=== PATIENT | male | born 1960 | race Caucasian/White ===

== ENCOUNTER 2017-11-26 18:12 | Observation (INO) ==
--- NOTE | 2017-11-26 18:39 | ED ---
HPI General Chief complaint: Abdominal Pain Stated complaint: ABD BLOATING / SOB [id number] Time Seen by Provider: 11/26/17 18:20 Source: patient Mode of arrival: ambulatory Limitations: no limitations History of Present Illness HPI narrative: Patient is a 56 year old male who comes in complaining of abdominal bloating and SOB. He says he has noticed bloating in his abdomen for about 6 months, but in the past few days he feels like it has gotten worse. He says in the past 2 weeks he has been feeling increasingly short of breath. He says when he lays down, he gets worse. He says he has been unable to sleep because he cannot find a position in which he is able to breath. He says he had some pain to his lower ribs associated with this. He denies swelling of his legs. He denies pain to his chest. He does reports "a lot of belching." He has not found anything that relieves his symptoms. He says his symptoms are not related to exertion. Severity is mild to moderate. Treatments prior to arrival: none Related Data Home Medications Medication Instructions Recorded Confirmed allopurinol 300 mg PO DAILY 11/26/17 11/26/17 levothyroxine [Synthroid] See Label Instructions .ROUTE 11/26/17 11/26/17 .COMPLEX levothyroxine [Synthroid] See Label Instructions .ROUTE 11/26/17 11/26/17 .COMPLEX Allergies Allergy/AdvReac Type Severity Reaction Status Date / Time No Known Allergies Allergy Unverified 11/26/17 18:16 Review of Systems Except as stated in HPI: all other systems reviewed are negative Constitutional Denies chills and Denies fever(s) ENT Denies dizziness Cardiovascular Denies chest pain and Denies dyspnea on exertion Respiratory Denies cough and Reports dyspnea Gastrointestinal Reports bloating, Denies nausea and Denies vomiting Musculoskeletal Denies myalgias and Denies arthralgias Integumentary/Breasts Denies change in pigmentation and Denies lesions Neurologic Denies focal weakness and Denies numbness PMFSH History History Provided By: Patient Medical History Medical History Dental root implant present (Acute) Gout (Acute) H/O partial thyroidectomy (Acute) Social History Social History Substance History: No History of Abuse Smoking Status: Current every day smoker Tobacco Type: Cigarettes How Often Do You Have a Drink Containing Alcohol: 2 to 4 times a month Recent Travel in [place] within the Last 8 Weeks: No Recent Out of Country Travel within the Last 8 Weeks: No Exam Narrative Exam Narrative: GENERAL: Awake and alert, no acute distress. SKIN: Focused skin assessment warm/dry. No wounds or signs of infection. HEAD: Atraumatic. Normocephalic. EYES: Pupils equal and round. No scleral icterus. Extraocular movements intact. ENT: Mucous membranes pink and moist. NECK: Trachea midline. No JVD. CARDIOVASCULAR: Regular rate and rhythm. No murmur appreciated. RESPIRATORY: No accessory muscle use. Clear to auscultation. Breath sounds equal bilaterally. GASTROINTESTINAL: Abdomen soft, nondistended. Tenderness to palpation of the left lower quadrant. No rebound or guarding. MUSCULOSKELETAL: No obvious deformities. No clubbing. No cyanosis. No edema. NEUROLOGICAL: Awake and alert. No obvious cranial nerve deficits. Motor grossly within normal limits. Normal speech. PSYCHIATRIC: Appropriate mood and affect; insight and judgment normal. Course Hospital Course: IV established, labs sent. CT abd/pelvis ordered. CTA chest ordered. Reevaluation(s) Reevaluation #1: Patient states he went to CAT scan and experienced chest pain. Time: 20:10 Reevaluation #2: Patient still experiencing pain to his lower chest. Informed of his results. Time: 21:40 Initial Documented Vital Signs Temperature 98.8 F 11/26/17 18:14 Pulse Rate 76 1818 18:14 Respiratory Rate 18 11/26/17 18:14 Blood Pressure 137/73 11/26/17 18:14 Pulse Oximetry 99 11/26/17 18:14 Last Documented Vital Signs Temperature 98.8 F 11/26/17 18:16 Pulse Rate 76 18 18:16 Respiratory Rate 18 11/26/17 18:16 Blood Pressure 137/73 11/26/17 18:16 Pulse Oximetry 99 11/26/17 18:16 Medical Decision Making [facility] Narrative Medical decision making narrative: Patient is a 56-year-old male who comes in complaining of lower chest pain and shortness of breath with abdominal bloating. Exam shows no acute wheeze. IV established, labs sent. Labs show no acute abnormalities. CT of the abdomen and pelvis performed shows no acute abnormalities. CTA of the chest shows a thyroid goiter, no other acute abnormalities. Patient informed of these results. He is still experiencing chest pains. Concern is for ACS. He will be placed in chest pain center for further management. Differential Diagnosis Differential Diagnosis: Ascites versus GERD versus ACS versus JESSICA Medical Records Medical records reviewed: Yes I reviewed the patient's medical records. Lab Data Lab results reviewed: Yes I reviewed the patient's lab results. Result diagrams: 11/26/17 19:05 11/26/17 19:05 Lab Results 11/26/17 11/26/17 11/26/17 Range/Units 19:05 19:05 19:05 CBC w Diff Auto diff final WBC 6.9 (4.0-11.0) th/mm3 RBC 4.71 (4.50-5.90) mil/mm3 Hgb 15.6 (13.0-17.0) gm/dL Hct 44.5 (39.0-51.0) % MCV 94.5 (80.0-100.0) fL MCH 33.2 (27.0-34.0) pg MCHC 35.1 (32.0-36.0) % RDW 12.6 (11.6-17.2) % Plt Count 211 (150-450) th/mm3 MPV 7.6 (7.0-11.0) fL Neut % (Auto) 60.0 (16.0-70.0) % Lymph % (Auto) 28.0 (9.0-44.0) % Mcintosh % (Auto) 6.2 (0.0-8.0) % Eos % (Auto) 4.9 H (0.0-4.0) % Baso % (Auto) 0.9 (0.0-2.0) % Neut # (Auto) 4.2 (1.8-7.7) th/mm3 Lymph # (Auto) 1.9 (1.0-4.8) th/mm3 Mcintosh # (Auto) 0.4 (0.0-0.9) th/mm3 Eos # (Auto) 0.3 (0.0-0.4) th/mm3 Baso # (Auto) 0.1 (0.0-0.2) th/mm3 WBC Differential . Differential Comment . PT 9.4 L (9.8-11.6) sec INR 0.9 Ratio APTT 23.1 L (24.3-30.1) sec Sodium 138 (136-145) meq/L Potassium 4.0 (3.5-5.1) meq/L Chloride 107 (98-107) meq/L Carbon Dioxide 22.6 (21.0-32.0) meq/L Anion Gap 8 (5-15) meq/L BUN 16 (7-18) mg/dL Creatinine 1.00 (0.60-1.30) mg/dL Estimated GFR 77 L (>89) mL/min Random Glucose 102 (74-106) mg/dL Calcium 8.5 (8.5-10.1) mg/dL Total Bilirubin 0.3 (0.2-1.0) mg/dL AST 26 (15-37) U/L ALT 40 (12-78) U/L Alkaline Phosphatase 74 (45-117) U/L Troponin I Less than 0.02 L (0.02-0.05) ng/mL B-Natriuretic Peptide (0-100) pg/mL Total Protein 7.3 (6.4-8.2) g/dL Albumin 3.8 (3.4-5.0) g/dL Lipase 175 (73-393) U/L Urine Color (Yellw/Straw) Urine Clarity (Clear) Urine pH (5.0-8.5) Ur Specific [place] (1.002-1.035) Urine Protein (Neg-Trace) mg/dL Urine Glucose (UA) (Negative) mg/dL Urine Ketones (Negative) mg/dL Urine Occult Blood (Negative) Urine Nitrate (Negative) Urine Bilirubin (Negative) Urine Urobilinogen (Less than 2) mg/dL Ur Leukocyte Esterase (Negative) Urine RBC (0-3) /hpf Urine WBC (0-5) /hpf Ur Squamous Epith Cells (0-5) /hpf Micro UA Comment Urine Culture Comments 11/26/17 11/26/17 Range/Units 19:05 20:50 CBC w Diff WBC (4.0-11.0) th/mm3 RBC (4.50-5.90) mil/mm3 Hgb (13.0-17.0) gm/dL Hct (39.0-51.0) % MCV (80.0-100.0) fL MCH (27.0-34.0) pg MCHC (32.0-36.0) % RDW (11.6-17.2) % Plt Count (150-450) th/mm3 MPV (7.0-11.0) fL Neut % (Auto) (16.0-70.0) % Lymph % (Auto) (9.0-44.0) % Mcintosh % (Auto) (0.0-8.0) % Eos % (Auto) (0.0-4.0) % Baso % (Auto) (0.0-2.0) % Neut # (Auto) (1.8-7.7) th/mm3 Lymph # (Auto) (1.0-4.8) th/mm3 Mcintosh # (Auto) (0.0-0.9) th/mm3 Eos # (Auto) (0.0-0.4) th/mm3 Baso # (Auto) (0.0-0.2) th/mm3 WBC Differential Differential Comment PT (9.8-11.6) sec INR Ratio APTT (24.3-30.1) sec Sodium (136-145) meq/L Potassium (3.5-5.1) meq/L Chloride (98-107) meq/L Carbon Dioxide (21.0-32.0) meq/L Anion Gap (5-15) meq/L BUN (7-18) mg/dL Creatinine (0.60-1.30) mg/dL Estimated GFR (>89) mL/min Random Glucose (74-106) mg/dL Calcium (8.5-10.1) mg/dL Total Bilirubin (0.2-1.0) mg/dL AST (15-37) U/L ALT (12-78) U/L Alkaline Phosphatase (45-117) U/L Troponin I (0.02-0.05) ng/mL B-Natriuretic Peptide 6 (0-100) pg/mL Total Protein (6.4-8.2) g/dL Albumin (3.4-5.0) g/dL Lipase (73-393) U/L Urine Color Yellow (Yellw/Straw) Urine Clarity Clear (Clear) Urine pH 6.0 (5.0-8.5) Ur Specific [place] Less/equal 1.005 (1.002-1.035) Urine Protein Negative (Neg-Trace) mg/dL Urine Glucose (UA) Negative (Negative) mg/dL Urine Ketones Negative (Negative) mg/dL Urine Occult Blood Negative (Negative) Urine Nitrate Negative (Negative) Urine Bilirubin Negative (Negative) Urine Urobilinogen 0.2 (Less than 2) mg/dL Ur Leukocyte Esterase Negative (Negative) Urine RBC 0-3 (0-3) /hpf Urine WBC 0-5 (0-5) /hpf Ur Squamous Epith Cells 0-5 (0-5) /hpf Micro UA Comment Culture not ind Urine Culture Comments Culture not ind Imaging Data Radiologist's impression: Abdomen/Pelvis CT 11/26/17 18:28 CONCLUSION: 1. Negative CT abdomen/pelvis with contrast. Chest CTA 11/26/17 18:28 CONCLUSION: 1. The study is negative for pulmonary embolism. 2. Right substernal goiter. ECG Data EKG Prior to Arrival: No Attestation: I personally reviewed and interpreted this ECG as follows: Interpretation: ECG shows normal sinus rhythm at a rate of 69, left anterior fascicular block Discharge Plan Discharge Disposition Patient Disposition: 30 Still Patient Discharge Condition Condition: Stable Discharge Details Diagnosis: Chest pain Physicians Team ED Provider: Coco Mclean Primary Care Provider: Lebron Samuel Rxs /Orders / Referrals /Forms Prescriptions: No Action levothyroxine [Synthroid] 75 mcg Tablet See Label Instructions .ROUTE .COMPLEX RF: 0 levothyroxine [Synthroid] 88 mcg Tablet See Label Instructions .ROUTE .COMPLEX RF: 0 allopurinol 300 mg Tablet 300 mg PO DAILY RF: 0 Discharge Interventions Interventions: Vital Signs Last Done: 11/26/17 18:16 Status ED Status: With Doctor
[2017-11-26 19:19] LABS: Baso # (Auto) 0.1 th/mm3 (0.0-0.2); Baso % (Auto) 0.9 % (0.0-2.0); Eos # (Auto) 0.3 th/mm3 (0.0-0.4); Eos % (Auto) 4.9 % (0.0-4.0); Hematocrit 44.5 % (39.0-51.0); Hemoglobin 15.6 gm/dL (13.0-17.0); Lymph # (Auto) 1.9 th/mm3 (1.0-4.8); Mean Corpuscular HGB Conc 35.1 % (32.0-36.0); Mean Corpuscular Hemoglobin 33.2 pg (27.0-34.0); Mean Corpuscular Volume 94.5 fL (80.0-100.0); Mean Platelet Volume 7.6 fL (7.0-11.0); Mono # (Auto) 0.4 th/mm3 (0.0-0.9); Mono % (Auto) 6.2 % (0.0-8.0); Neut # (Auto) 4.2 th/mm3 (1.8-7.7); Platelet Count 211 th/mm3 (150-450); Red Blood Count 4.71 mil/mm3 (4.50-5.90); Red Cell Distribution Width 12.6 % (11.6-17.2); White Blood Count 6.9 th/mm3 (4.0-11.0)
[2017-11-26 19:26] LABS: Chloride 107 meq/L (98-107); Sodium 138 meq/L (136-145)
[2017-11-26 19:29] LABS: Calcium 8.5 mg/dL (8.5-10.1)
[2017-11-26 19:30] LABS: Albumin 3.8 g/dL (3.4-5.0); Anion Gap 8 meq/L (5-15); Blood Urea Nitrogen 16 mg/dL (7-18); Carbon Dioxide 22.6 meq/L (21.0-32.0); Glucose,Random 102 mg/dL (74-106); Lipase 175 U/L (73-393)
[2017-11-26 19:32] LABS: Activated Partial Thrombo Time 23.1 sec (24.3-30.1); INR 0.9 Ratio; Prothrombin Time 9.4 sec (9.8-11.6)
[2017-11-26 19:33] LABS: Alanine Aminotransferase 40 U/L (12-78); Aspartate Aminotransferase 26 U/L (15-37); Glomerular Filtration Rate 77 mL/min (>89)
[2017-11-26 19:34] LABS: Total Protein 7.3 g/dL (6.4-8.2)
[2017-11-26 19:35] LABS: Alkaline Phosphatase 74 U/L (45-117)
[2017-11-26 20:58] LABS: Bilirubin,Urine Negative (Negative); Clarity,Urine Clear (Clear); Color,Urine Yellow (Yellw/Straw); Glucose,Urine (UA) Negative (Negative); Leukocyte Esterase,Urine Negative (Negative); Nitrite,Urine Negative (Negative); Specific Gravity,Urine Less/Equal 1.005 (1.002-1.035); Urobilinogen,Urine 0.2 mg/dL (Less than 2)
[2017-11-26 21:07] LABS: RBC,Urine 0-3 /hpf (0-3); Squamous Epithelial Cell,Urine 0-5 /hpf (0-5); WBC,Urine 0-5 /hpf (0-5)
--- NOTE | 2017-11-26 21:12 | CT ---
EXAM DATE: 11/26/2017 8:42 PM EDT AGE/SEX: 56 years / Male INDICATIONS: Abdominal pain. Bloating. CLINICAL DATA: This is the patient's initial encounter. Patient reports that signs and symptoms have been present for 3 weeks and indicates a pain score of 7/10. MEDICAL/SURGICAL HISTORY: None. None. ORAL CONTRAST: No oral contrast ingested. RADIATION DOSE: 18.26 CTDI (mGy) COMPARISON: No prior exams available for comparison. TECHNIQUE: Multiple contiguous axial images were obtained through the abdomen and pelvis following b olus infusion of 100 ml Omnipaque 350 (iohexol) nonionic water-soluble contrast as a cumulative dos e for multiple exams. No oral contrast ingested. Using automated exposure control and adjustment of the mA and/or kV according to patient size, radiation dose was kept as low as reasonably achievable t o obtain optimal diagnostic quality images. DICOM format image data is available electronically for review and comparison. FINDINGS: Lower Lungs: The visualized lower lungs are clear. Liver: The liver has a homogeneous density without space-occupying lesion. There is no dilation of th e biliary tree. No calcified gallstones. Spleen: Homogeneous density without enlargement. Pancreas: Unremarkable without mass or calcification. Kidneys: Normal in size and shape. No evidence of mass or hydronephrosis. Adrenal Glands: Unremarkable. Aorta: The aorta and proximal iliac vessels are grossly unremarkable without aneurysmal dilation. Bowel/Mesentery: No dilated loops of small or large bowel. No evidence of free fluid. Abdominal Wall: Intact. Retroperitoneum: No evidence of adenopathy in the retrocrural, para-aortic, or deep pelvic regions. Bladder: Contours are smooth. Reproductive Organs: No abnormal masses or calcifications seen. Inguinal: The inguinal region is unremarkable without evidence of adenopathy. Bony Structures: Unremarkable. CONCLUSION: 1. Negative CT abdomen/pelvis with contrast. Electronically signed by: Mickey Strickland MD 11/26/2017 9:10 PM EDT
--- NOTE | 2017-11-26 21:13 | CT ---
EXAM DATE: 11/26/2017 8:44 PM EDT AGE/SEX: 56 years / Male INDICATIONS: Shortness of breath. Evaluate for embolism. CLINICAL DATA: This is the patient's initial encounter. Patient reports that signs and symptoms have been present for 3 weeks and indicates a pain score of 7/10. MEDICAL/SURGICAL HISTORY: None. None. RADIATION DOSE: 18.59 CTDI (mGy) COMPARISON: No prior exams available for comparison. TECHNIQUE: Volumetric scanning was performed using a multi-row detector CT scanner during bolus infu piper of 100 ml Omnipaque 350 (iohexol) nonionic water-soluble contrast as a cumulative dose for mult iple exams. The data was post processed with a variety of visualization algorithms including full vol ume maximum intensity projection and sliding thin slab reformation. Using automated exposure control and adjustment of the mA and/or kV according to patient size, radiation dose was kept as low as reaso nably achievable to obtain optimal diagnostic quality images. DICOM format image data is available e lectronically for review and comparison. FINDINGS: Pulmonary Arteries: No filling defects are seen in the pulmonary arteries out to the subsegmental ve ssels. The left and right pulmonary arteries are normal in diameter. Lung: No infiltrates seen. Effusion: None. Mediastinum: No evidence of mediastinal or hilar adenopathy. Other: Enlarged right lobe of the thyroid with substernal extension. CONCLUSION: 1. The study is negative for pulmonary embolism. 2. Right substernal goiter. Electronically signed by: Mickey Strickland MD 11/26/2017 9:12 PM EDT
[2017-11-26] MEDS ORDERED: Pantoprazole Sodium 20 MG DR Tablet PO ONE (21:44)
[2017-11-27 01:54] LABS: Creatine Kinase 126 U/L (39-308)
[2017-11-27 08:31] LABS: Creatine Kinase 120 U/L (39-308)
--- NOTE | 2017-11-27 09:27 | P.HP ---
History of Present Illness Primary Care Physician: Lebron Samuel DO Chief Complaint: chest pain, abd bloating History of Present Illness: 56-year-old male with known history of partial thyroidectomy secondary to goiter, gouty arthritis who presented to the hospital because of chest discomfort and abdominal pain. Patient states that her last 6 months he has been having intermittent sensation in his abdomen with epigastric discomfort and bloating mainly after he eats. Over the last couple weeks he has been having difficulty with sleeping because he cannot lay flat because you get really short of breath and dyspneic. Then over the last 2 days he started developing some discomfort in the epigastric and lower rib area which he describes as a pressure of 8/10 on a pain scale. He has never experienced that discomfort before so he came to the emergency department for evaluation. Patient was given aspirin and Protonix emergency department with resolution of his discomfort after approximately 4 hours. Patient is now resting comfortably in bed. He states that it discomfort is coming back slowly. However he has no longer shortness of breath or has any dyspnea. Patient states that he has not had any nausea, vomiting, diaphoresis, radiation of pain to neck, back, shoulder , arm, denies any lightheadedness or dizziness. Patient was evaluated emergency department with x-rays, pulmonary angiograms, a CT of the abdomen and which were all unremarkable. Laboratory studies were unremarkable. Is recommended by the ER physician the patient be observed in chest pain center for further evaluation and management. - Diagnosis (1) Chest pain Review of Systems All other systems reviewed negative except as stated in HPI Cardiovascular: Reports chest pain Respiratory: Reports shortness of breath Gastrointestinal: Reports abdominal pain, Reports belching, Reports bloating PMFSH - History History Provided By: Patient - Medical History Medical History: Medical History (Last Reviewed 11/27/17 @ 09:21 by YONI Bridges) Dental root implant present Gout H/O partial thyroidectomy - Family History Family History: Family History (Last Reviewed 11/27/17 @ 09:21 by YONI Bridges) Grandparent Diabetes Mother Diabetes Father Family history of bladder cancer - Tobacco History Second Hand Smoke Exposure: Yes Tobacco Use In Past 30 Days: Yes Smoking Status: Current every day smoker Tobacco Type: Cigarettes Packs Per Day: 1 - Alcohol History How Often Do You Have a Drink Containing Alcohol: Monthly or less - Substance Use History Substance History: No History of Abuse - Travel History Recent Travel in the [place] Within the Last 8 Weeks: No Recent Travel Out of the Country Within the Last 8 Weeks: No - Immunization History Tetanus Immunization: >5 Years Hx Influenza Vaccine This Season: No Medications and Allergies Active Medications: Active Medications Nitroglycerin (Nitrostat Sl) 0.4 mg SL Q5M PRN PRN Reason: CHEST PAIN Ondansetron HCl (Zofran Inj) 4 mg IV.PUSH Q6H PRN PRN Reason: NAUSEA OR VOMITING Pantoprazole Sodium (Protonix) 40 mg PO BID BRNIA Sodium Chloride (Ns Flush) 2 ml IV.FLUSH PRN PRN PRN Reason: FLUSH AFTER USING IV ACCESS Sodium Chloride (Ns Flush) 2 ml IV.FLUSH BID BRINA Allergies Allergy/AdvReac Type Severity Reaction Status Date / Time No Known Allergies Allergy Unverified 11/26/17 18:16 Home Medications Medication Instructions Recorded Confirmed Type allopurinol 300 mg PO DAILY 11/26/17 11/26/17 History levothyroxine [Synthroid] PO 3XW 11/26/17 History levothyroxine [Synthroid] PO 4XW 11/26/17 History Exam Vital signs: Vital Signs 11/26/17 18:14 11/26/17 18:16 11/26/17 22:09 Temperature 98.8 F 98.8 F Pulse Rate 76 76 68 Respiratory Rate 18 18 17 Blood Pressure 137/73 137/73 149/86 H Pulse Oximetry 99 99 98 11/27/17 00:00 11/27/17 04:00 11/27/17 08:00 Temperature 96.8 F L 96.3 F L 96.9 F L Pulse Rate 63 59 L 66 Respiratory Rate 20 20 16 Blood Pressure 127/73 134/80 133/77 Pulse Oximetry 95 97 97 11/27/17 09:11 Temperature Pulse Rate 59 L Respiratory Rate Blood Pressure Pulse Oximetry Intake & Output 11/26/17 11/27/17 11/27/17 18:59 06:59 18:59 Weight 99.9 kg 99.7 kg Other: # Voids 1 Date of Last Bowel Movement 11/26/17 Narrative: GENERAL: Well-developed, well-nourished, in no acute distress. alert and orientated HEENT: Head is normocephalic without any lesions or masses noted. Facial features are symmetric. Eyes: Pupils equal round reactive to light. Extraocular muscles are intact. Conjunctivae were clear. Oropharyngeal: Pharynx without any erythema edema. Tongue is midline without deviation. Buccal mucosa is moist without any masses or lesions NECK: Supple without any masses. Trachea midline no deviation. No JVD, no bruits are appreciated CARDIAC: Regular rhythm, regular rate. S1/S2 are heard. No murmurs gallops or rubs. LUNGS: Clear to auscultation bilaterally. No wheeze, rhonchi or rales. No use of accessory muscles on inspiration or expiration. ABDOMEN: Soft, nontender. Nondistended. Bowel sounds heard in all 4 quadrants. No organomegaly or masses. Negative rebound, negative guarding EXTREMITIES: No edema, pulses are equal bilaterally. No cyanosis or clubbing NEUROLOGY: Mood and affect appear appropriate. Cranial nerves II through XII grossly intact. Muscle strength 5/5 in upper and lower extremities bilaterally. Deep tendon reflexes are 2+ in upper and lower extremities bilaterally. Results - Labs CBC & Chem 7: 11/26/17 19:05 11/26/17 19:05 Labs: Laboratory Results - last 24 hr 11/26/17 11/26/17 11/26/17 19:05 19:05 19:05 CBC w Diff Auto diff final WBC 6.9 RBC 4.71 Hgb 15.6 Hct 44.5 MCV 94.5 MCH 33.2 MCHC 35.1 RDW 12.6 Plt Count 211 MPV 7.6 Neut % (Auto) 60.0 Lymph % (Auto) 28.0 Luna % (Auto) 6.2 Eos % (Auto) 4.9 H Baso % (Auto) 0.9 Neut # (Auto) 4.2 Lymph # (Auto) 1.9 Luna # (Auto) 0.4 Eos # (Auto) 0.3 Baso # (Auto) 0.1 WBC Differential . Differential Comment . PT 9.4 L INR 0.9 APTT 23.1 L Sodium 138 Potassium 4.0 Chloride 107 Carbon Dioxide 22.6 Anion Gap 8 BUN 16 Creatinine 1.00 Estimated GFR 77 L Random Glucose 102 Calcium 8.5 Total Bilirubin 0.3 AST 26 ALT 40 Alkaline Phosphatase 74 Total Creatine Kinase Troponin I Less than 0.02 L B-Natriuretic Peptide Total Protein 7.3 Albumin 3.8 Lipase 175 Urine Color Urine Clarity Urine pH Ur Specific [place] Urine Protein Urine Glucose (UA) Urine Ketones Urine Occult Blood Urine Nitrate Urine Bilirubin Urine Urobilinogen Ur Leukocyte Esterase Urine RBC Urine WBC Ur Squamous Epith Cells Micro UA Comment Urine Culture Comments 11/26/17 11/26/17 11/27/17 19:05 20:50 01:20 CBC w Diff WBC RBC Hgb Hct MCV MCH MCHC RDW Plt Count MPV Neut % (Auto) Lymph % (Auto) Luna % (Auto) Eos % (Auto) Baso % (Auto) Neut # (Auto) Lymph # (Auto) Luna # (Auto) Eos # (Auto) Baso # (Auto) WBC Differential Differential Comment PT INR APTT Sodium Potassium Chloride Carbon Dioxide Anion Gap BUN Creatinine Estimated GFR Random Glucose Calcium Total Bilirubin AST ALT Alkaline Phosphatase Total Creatine Kinase 126 Troponin I Less than 0.02 L B-Natriuretic Peptide 6 Total Protein Albumin Lipase Urine Color Yellow Urine Clarity Clear Urine pH 6.0 Ur Specific [place] Less/equal 1.005 Urine Protein Negative Urine Glucose (UA) Negative Urine Ketones Negative Urine Occult Blood Negative Urine Nitrate Negative Urine Bilirubin Negative Urine Urobilinogen 0.2 Ur Leukocyte Esterase Negative Urine RBC 0-3 Urine WBC 0-5 Ur Squamous Epith Cells 0-5 Micro UA Comment Culture not ind Urine Culture Comments Culture not ind 11/27/17 07:58 CBC w Diff WBC RBC Hgb Hct MCV MCH MCHC RDW Plt Count MPV Neut % (Auto) Lymph % (Auto) Luna % (Auto) Eos % (Auto) Baso % (Auto) Neut # (Auto) Lymph # (Auto) Luna # (Auto) Eos # (Auto) Baso # (Auto) WBC Differential Differential Comment PT INR APTT Sodium Potassium Chloride Carbon Dioxide Anion Gap BUN Creatinine Estimated GFR Random Glucose Calcium Total Bilirubin AST ALT Alkaline Phosphatase Total Creatine Kinase 120 Troponin I Less than 0.02 L B-Natriuretic Peptide Total Protein Albumin Lipase Urine Color Urine Clarity Urine pH Ur Specific [place] Urine Protein Urine Glucose (UA) Urine Ketones Urine Occult Blood Urine Nitrate Urine Bilirubin Urine Urobilinogen Ur Leukocyte Esterase Urine RBC Urine WBC Ur Squamous Epith Cells Micro UA Comment Urine Culture Comments - Imaging Impressions Abdomen/Pelvis CT 11/26/17 18:28 CONCLUSION: 1. Negative CT abdomen/pelvis with contrast. Chest CTA 11/26/17 18:28 CONCLUSION: 1. The study is negative for pulmonary embolism. 2. Right substernal goiter. Caprini VTE Risk Assessment Caprini VTE Risk Assessment: No/Low Risk (score <= 1) Caprini Risk Assessment Model: Point Value = 1 Point Value = 2 Point Value = 3 Point Value = 5 Age 41-60 Minor surgery BMI > 25 kg/m2 Swollen legs Varicose veins or History of unexplained or recurrent spontaneous Oral contraceptives or hormone replacement Sepsis (< 1 month) Serious lung disease, including pneumonia (< 1 month) Abnormal pulmonary function Acute myocardial infarction Congestive heart failure (< 1 month) History of inflammatory bowel disease Medical patient at bed rest Age 61-74 Arthroscopic surgery Major open surgery (> 45 min) Laparoscopic surgery (> 45 min) Malignancy Confined to bed (> 72 hours) Immobilizing plaster cast Central venous access Age >= 75 History of VTE Family history of VTE Factor V Leiden Prothrombin 60020I Lupus anticoagulant Anticardiolipin antibodies Elevated serum homocysteine Heparin-induced thrombocytopenia Other congenital or acquired thrombophilia Stroke (< 1 month) Elective arthroplasty Hip, pelvis, or leg fracture Acute spinal cord injury (< 1 month) Prophylaxis Regimen: Total Risk Factor Score Risk Level Prophylaxis Regimen 0-1 Low Early ambulation 2 Moderate Order ONE of the following: *Sequential Compression Device (SCD) *Heparin 5000 units SQ BID 3-4 Higher Order ONE of the following medications: *Heparin 5000 units SQ TID *Enoxaparin/Lovenox 40 mg SQ daily (WT < 150 kg, CrCl > 30 mL/min) *Enoxaparin/Lovenox 30 mg SQ daily (WT < 150 kg, CrCl > 10-29 mL/min) *Enoxaparin/Lovenox 30 mg SQ BID (WT < 150 kg, CrCl > 30 mL/min) AND/OR *Sequential Compression Device (SCD) 5 or more Highest Order ONE of the following medications: *Heparin 5000 units SQ TID (Preferred with Epidurals) *Enoxaparin/Lovenox 40 mg SQ daily (WT < 150 kg, CrCl > 30 mL/min) *Enoxaparin/Lovenox 30 mg SQ daily (WT < 150 kg, CrCl > 10-29 mL/min) *Enoxaparin/Lovenox 30 mg SQ BID (WT < 150 kg, CrCl > 30 mL/min) AND *Sequential Compression Device (SCD) Assessment and Plan - Assessment (1) Chest pain Code(s): R07.9 - Chest pain, unspecified Status: Acute Plan: -Patient presented with atypical symptoms of chest discomfort to include abdominal distention, orthopnea, epigastric pain. -Patient does have increased risk factors with age, male, tobacco use -Chest x-ray, any angiogram, CT the abdomen does not indicate any acute etiology -Patient has been ruled out for acute coronary event with serial cardiac enzymes are negative -EKG were reviewed and show sinus rhythm, left anterior fascicular block without any changes -Exercise stress test was performed and was normal without any signs of ischemia -Pain was relieved with aspirin/Protonix -Patient continued on aspirin, nitroglycerin as needed, -Continue to monitor telemetry - Plan DVT prevention -Low risk, early ambulation (1) Chest pain Qualifiers: Chest pain type: unspecified Qualified Code(s): R07.9 - Chest pain, unspecified
--- NOTE | 2017-11-27 12:03 | TR ---
Date Performed: 11/27/2017 Time Performed: 11:31:37 DOCTOR: Janina Cuellar DRUG LIST: CLINICAL HISTORY: REASON FOR TEST: REASON FOR ENDING: Completed Protocol OBSERVATION: Chest Pain: None CONCLUSION: Patient tolerated CARLEE protocol with Total Exercise Time=6:37 Maximum RH=464 % Max HR Achieved=88.0% Maximum NU=888/90, Testing stopped secondary to goals acheived, Patient reached tar get HR. During peak exercise, patient had quick upsloping ST segments, No significant ST depressions. HR and BP appropriate response to exercise, Recovery period, HR and BP returned to normal COMMENTS: No ischemia
--- NOTE | 2017-11-27 12:09 | ECG ---
Date Performed: 11/26/2017 Time Performed: 18:42:20 PTAGE: 56 years EKG: Sinus rhythm LEFT ANTERIOR FASCICULAR BLOCK ABNORMAL ECG NO PREVIOUS TRACING DOCTOR: Janina Cuellar Interpretating Date/Time 11/27/2017 12:08:20
--- NOTE | 2017-11-27 12:10 | ECG ---
Date Performed: 11/27/2017 Time Performed: 00:48:38 PTAGE: 56 years EKG: Sinus rhythm LEFT ANTERIOR FASCICULAR BLOCK NONSPECIFIC T-WAVE ABNORMALITY ABNORMAL ECG Since PREVIOUS TRACING , no significant change noted PREVIOUS TRACIN11/26/2017 18.42 DOCTOR: Janina Cuellar Interpretating Date/Time 11/27/2017 12:09:11
--- NOTE | 2017-11-27 12:11 | ECG ---
Date Performed: 11/27/2017 Time Performed: 07:54:58 PTAGE: 56 years EKG: SINUS BRADYCARDIA MARKED LEFT AXIS DEVIATION MODERATE INTRAVENTRICULAR CONDUCTION DELAY ABN ORMAL ECG Since PREVIOUS TRACING , no significant change noted PREVIOUS TRACIN11/27/2017 00.48 DOCTOR: Janina Cuellar Interpretating Date/Time 11/27/2017 12:09:46
== END 2017-11-27 14:50 | disposition home or self-care (01) ==
LOC: PH3 18:12 → PHED 18:12 → PHEDA 18:12 → PH3 23:12
PROVIDERS: ADMIT Family Medicine; ATTEND Family Medicine